=== PATIENT | female | born 1960 | race Caucasian/White ===

== ENCOUNTER 2017-03-15 18:23 | Inpatient (IN) | payer OTHER ==
[~2017-03-15] VITALS: Ht 167.6 cm; Wt 80.8 kg
[2017-03-15 18:25] VITALS: BP 149/92; PULSE 114; RESP 20; O2SAT 97
--- NOTE | 2017-03-15 19:11 | DRSVH ---
PROCEDURE: X-RAY CHEST ONE VIEW, PORTABLE ([id number]) INDICATIONS: CHEST PAIN TECHNIQUE: One view of the chest was acquired. COMPARISON: None. FINDINGS: Surgical changes and devices: None. Lungs and pleura: No pleural effusions or pneumothorax. Lungs are clear. Mediastinum: Mediastinal contours appear normal. Heart size is normal. Bones and chest wall: No suspicious bony lesions. Overlying soft tissues appear unremarkable. IMPRESSION: No acute pulmonary process. Dictated by: Becky Hooks M.D. on 03/15/2017 at 19:09 Approved by: Becky Hooks M.D. on 03/15/2017 at 19:09
[2017-03-15 19:46] VITALS: BP 130/81; PULSE 96; RESP 12; O2SAT 99
[2017-03-15 20:08] LABS: BASOPHILS % (AUTO) 0.5 % (0-3); EOSINOPHILS % (AUTO) 1.9 % (0-5); MONOCYTES % (AUTO) 5.6 % (4-12); Mean Corpuscular Hemoglobin 30.6 pg (27.0-35.0); Mean Corpuscular Volume 89.1 fL (81-100); NEUTROPHILS % (AUTO) 46.4 % (40-74); Platelet Count 367 bil/L (150-400)
--- NOTE | 2017-03-15 20:16 | ED.REPORT ---
HPI-General Illness Date of Service Mar 15, 2017 ED Provider: Lon June MD Pt is a 56 year old female with a history of DM who presents to the ED with concerns for chest pain and lightheadedness. She states that she was at her physical therapy appointment when she was on the exercise bike and her chest began to feel tight, and her arms began to feel "rubbery". 5 out of 10 in severity. Pt reports that this same episode has happened 5 times in the past 9 days, with the first occurrence on the of this month. She describes the pain as a pressure that radiates to her left arm and jaw. This sensation is exacerbated with exertion. She reports that the pressure gradually decreased after she stopped exercising. Pain mild upon arrival while sitting, relieved with nitroglycerin. No other complaints at this time. Nursing Notes Stated Complaint: CHEST PAIN,LIGHTHEADED Chief Complaint: Chest Pain Nursing Notes Reviewed: Yes Allergies: Coded Allergies: Sulfa (Sulfonamide Antibiotics) (Verified Allergy, Mild, 03/15/17) General Time Seen by MD: 19:49 Chief Complaint Chest pain Hx Obtained From: Patient, Spouse Arrived By: Walk-in Sudden in Onset?: Yes Onset Occurred: More than a week ago... Symptom Duration: Intermittent Location: : Chest Quality: Painful, Pressure Severity: Current: Mild Severity: Maximum: Moderate Similar Sx Previous: Yes Past Medical History Past Medical History Former drug use Reports: Diabetes mellitus Past Surgical History Complete hysterectomy Family History Father had a heart attack in his 50s Brother had a heart attack in his 50s Uncle had a heart attack in his 60s Smoking History Former Smoker Social History Alcohol Use: Denies alcohol use Drug Use: In recovery Ambulatory Status Independent Review of Systems Full Review of Systems Constitutional: Denies: Chills, Fever, Weakness - generalized Respiratory: Denies: Non-productive cough, Shortness of breath, Wheezing Cardiovascular: Reports: Chest pain, Denies: Syncope GI: Denies: Abdominal pain, Constipation, Diarrhea, Nausea, Vomiting Female: Denies: Dysuria, Flank pain, Urinary frequency, Urinary urgency Musculoskeletal: Reports: Extremity pain, Denies: Neck pain Skin: Denies Diaphoresis, Denies Swelling Neurologic: Denies: Change LOC, Dizziness, Headache, Syncope Complete sys rev & neg: except as marked. Physical Exam Nursing note and vitals reviewed. Constitutional: Well-developed, well-nourished. Not diaphoretic. Head: Normocephalic and atraumatic. Mouth/Throat: Oropharynx is clear and moist. No oropharyngeal exudate. Eyes: EOM are normal. Pupils are equal, round, and reactive to light. Neck: Supple, no tracheal deviation. Cardiovascular: Normal rate, regular rhythm. Equal and intact distal pulses throughout. Pulmonary/Chest: Effort normal and breath sounds normal. No respiratory distress. Mild chest wall tenderness to palpation, this is different from the pressure-like pain that she was experiencing earlier Abdominal: Soft. No distension. There is no tenderness, rebound, or guarding. Bowel sounds present. Musculoskeletal: Range of motion grossly intact, moving all extremities. No edema or tenderness appreciated. Neurological: AOx3. Grossly nonfocal exam. Strength and sensation intact and equal to bilateral upper and lower extremities. Skin: Warm and dry, no rashes or pallor appreciated. Psychiatric: Appropriate mood and affect. Behavior appears normal. Vital Signs Vital Signs Date Time Temp Pulse Resp B/P Pulse Ox O2 Delivery O2 Flow Rate FiO2 03/15/17 22:08 36.9 93 13 113/70 99 Room Air 03/15/17 19:46 96 12 130/81 99 Room Air 03/15/17 18:25 36.8 114 20 149/92 97 Room Air Initial VS: Reviewed Interpretation & Diagnostics Lab Results Interpretation Result Diagram: 03/15/17195303/15/171953 Test 03/15/17 19:54 White Blood Count 9.1th/mm3 (3.8-10.1) Red Blood Count 4.02mil/mm3 (3.90-5.20) Hemoglobin 12.3g/dL (12.0-15.6) Hematocrit 35.8% (35.0-46.0) Mean Corpuscular Volume 89.1fL (81-100) Mean Corpuscular Hemoglobin 30.6pg (27.0-35.0) Mean Corpuscular Hemoglobin Concent 34.4% (32.0-37.0) Red Cell Distribution Width 11.9% (12.3-15.4) Platelet Count 367bil/L (150-400) Neutrophils (%) (Auto) 46.4% (40-74) Lymphocytes (%) (Auto) 45.3% (14-46) Monocytes (%) (Auto) 5.6% (4-12) Eosinophils (%) (Auto) 1.9% (0-5) Basophils (%) (Auto) 0.5% (0-3) Prothrombin Time 10.4sec (8.1-12.5) Prothromb Time International Ratio 0.97ratio Sodium Level 131mEq/L (134-144) Potassium Level 3.9mEq/L (3.5-5.2) Chloride Level 94mEq/L (97-108) Carbon Dioxide Level 21mmol/L (18-29) Blood Urea Nitrogen 7mg/dL (6-24) Creatinine 0.46mg/dL (0.57-1.00) Estimat Glomerular Filtration Rate 203mL/min (>59) Glucose Level 213mg/dL (60-99) Calcium Level 10.1mg/dL (8.5-10.1) Magnesium Level 1.8mg/dL (1.6-2.6) Total Bilirubin 0.3mg/dL (0.0-1.2) Aspartate Amino Transf (AST/SGOT) 27U/L (0-50) Alanine Aminotransferase (ALT/SGPT) 38U/L (0-32) Alkaline Phosphatase 157U/L (25-150) Troponin T < 0.010ug/L (0.0-0.011) Total Protein 8.5g/dL (6.4-8.4) Albumin 4.4g/dL (3.4-5.0) ECG Interpretation ECG Interpretation: SR - 98 Probable left atrial enlargement Time: 19:23 Interpreted by: ED physician X-Ray Chest Interpretation Chest Xray Interpretation: IMPRESSION: No acute pulmonary process. Dictated by: Becky Hooks M.D. on 03/15/2017 at 19:09 Interpretation / Wet Read by: Interpret - Radiologist Re-Eval/Medical Decision Med Decision/Clinical Course 56-year-old female presenting to the ED for evaluation of exertional, midsternal chest pain radiating up to her left jaw and down her left arm earlier today, since relieved by rest. Patient received nitroglycerin upon arrival, which took her pain away. She is not having any dyspnea, no pain radiating through the back; low risk by well's criteria, no clinical suspicion for aortic dissection at this time. No evidence of pneumothorax on chest x-ray or examination. Patient does have a history of smoking, diabetes, and both of her parents had heart attacks at young ages. I am concerned about her history and clinical presentation. Her initial EKG here with no acute ischemic changes and initial troponin negative. She has a HEART score of 4, suggesting a 12-16% risk of a major adverse cardiac event in the near future. She would benefit from some form of provocative testing for risk stratification and given her risk factors, plan admission for this. Patient agreeable to the plan as stated , no further questions. Source of Hx: Old records Time of Eval: 23:33 Re-Evaluation/Progress Note: Pt is rechecked and informed of her labs and imaging results and the plan to admit her at this time with close cardiac follow up with plans for a stress test. She understands and agrees, all questions are addressed. Counseled Regarding: Diagnosis, Lab results, Need for admission Discharge & Departure Primary Impression: Chest pain Chest pain type: unspecified Qualified Code: R07.9 - Chest pain, unspecified Disposition: ADMITTED TO HOSPITAL Discharge Condition All VS Reviewed: Yes Condition: Stable Referrals: Sandra Farias PA-C (PCP) Nu Attestation Portions of this note were transcribed by Vale Barba. I, Dr. June personally performed the history, physical exam and medical decision-making; I reviewed and confirmed the accuracy of the information in the transcribed note. Signed by: Nu Rodriguez, 03/15/2017 [Time]. copies to: Sandra Farias PA-C, William B MD Mar 15, 2017 20:16 SHAGGY BARBA Mar 15, 2017 21:31
[2017-03-15 20:35] LABS: TROPONIN T < 0.010 ug/L (0.0-0.011)
[2017-03-15 20:36] LABS: Magnesium 1.8 mg/dL (1.6-2.6)
[2017-03-15 20:41] LABS: INR 0.97 ratio
[2017-03-15 22:08] VITALS: BP 113/70; PULSE 93; RESP 13; O2SAT 99
[2017-03-15] MEDS ORDERED: Senna-Docusate 8.6-50 mg Tablet PO PRN (23:45)
[2017-03-15] MEDS ORDERED: Ondansetron 2 mg/mL 2 mL Inj IVPUSH PRN (23:45)
[2017-03-15] MEDS ORDERED: Polyethylene Glycol (PEG) 17 Gm Powder PO PRN (23:45)
[2017-03-15] MEDS ORDERED: Alum-Mag Hydrox-Simeth 30 mL Suspension PO PRN (23:45)
[2017-03-15] MEDS ORDERED: Atropine 1 mg/10 mL (Code) Syringe IVPUSH PRN (23:45)
[2017-03-15] MEDS ORDERED: 0.9% Sodium Chloride 1,000 ML IV ONE (23:50)
[2017-03-16] VITALS (20 sets, daily range): BP systolic 106–159; BP diastolic 69–94; PULSE 80–100; RESP 13–18; O2SAT 93–99
[2017-03-16] MEDS: Sodium Chloride LOK Flush 10 mL Syringe IVFLUSH SCH ×4 (00:51→21:40)
[2017-03-16] MEDS ORDERED: Glucose 40% Oral Gel 15 Gm Tube PO PRN (01:00)
--- NOTE | 2017-03-16 02:12 | PCM.HPMED ---
Subjective Date of Service Mar 15, 2017 Primary Provider: Admitting Physician: Karl Ash MD Primary Care Physician: Sandra Farias PA-C Attending Physician: Karl Ash MD Chief Complaint: chest pain History of Present Illness: Mariel is a 56 yo F with history of uncontrolled T2DM not insulin dependent who presented to the ED for concerns of intermittent chest pain over the last 2 weeks. She reports that she was on the exercise bike today at PT when she noted some chest tightness about 5 minutes into her exercise. She states the chest pressure was substernal, radiated laterally on her chest, and also into her left jaw and left arm. She reports her arms felt "rubbery" when it happened. She also had some associated lightheadedness, palpitations, and diaphoresis. She states this lasted about 5 minutes and resolved after rest. She has had about 5 episodes in the past 2 weeks with similar presentation but less severe. The episodes tend to be associated with exertion, such as mowing the lawn, except for one episode that occurred at night and woke her up from sleep. She does have an extensive history of heart disease in her family, with her father having an AL in his later 40s. At baseline, she has not noticed any JOYNER, LE edema, or orthopnea. 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 She denies any recent illnesses, but did have Januvia added to her diabetic regimen. Despite this, she reports her fasting sugars are still in the low 200s. She reports her last A1c was about 9.0. In the ED, she was asymptomatic with normal, stable vital signs EKG showed sinus rhythm with no acute ST changes CBC was unremarkable, CMP showed mild hyponatremia, negative troponin. Chest x- ray was benign Due to patient's multiple comorbidities, she is admitted for further evaluation of her chest pain Review of Systems: Comprehensive review of systems was conducted with the patient and found to be negative except as noted above in HPI. Allergies Coded Allergies: Sulfa (Sulfonamide Antibiotics) (Verified Allergy, Mild, 03/15/17) Home Medications From [facility] 12/08/2016 atorvastatin 40 mg tablet take 1 tablet by oral route every day 10/27/2016 estradiol 0.5 mg tablet TAKE ONE TABLET BY MOUTH DAILY 03/09/2017 glyburide 5 mg tablet take 2 Tablets by oral route every breakfast 01/11/2017 Januvia 100 mg tablet take 1 tablet by oral route every day 01/11/2017 lisinopril 5 mg tablet take 1 tablet by oral route every day 02/15/2017 meloxicam 7.5 mg tablet take 1 tablet by oral route every day as needed for inflammatory exacerbation 06/16/2016 metformin 1,000 mg tablet TAKE ONE TABLET BY MOUTH TWICE A DAY WITH MORNING AND EVENING MEALS multivitamin tablet take 1 tablet by oral route every day with food 01/11/2017 nortriptyline 10 mg capsule take 1 Capsule by oral route every bedtime 06/16/2016 nystatin 100,000 unit/gram topical cream apply by topical route 2 times every day to the affected area(s) OMEGA-3 Take 1 capsule by oral route once daily 11/26/2014 [employer] Lancets 25 gauge use to test BS twice daily 12/13/2014 [employer] Ultra System Kit use to test blood sugar twice daily 01/11/2017 [employer] Ultra Test strips Use 1 Strip by External route 2 times every day to check blood sugars Probiotic Take 1 tab PO daily Vitamin B-12 1,000 mcg/mL oral drops instill 6-8 gtts by oral route once daily Vitamin D3 5,000 unit tablet Take 1 tablet by oral route once daily PMH Type II diabetes mellitus not on insulin, uncontrolled Hyperlipidemia Distant history of IV drug use and alcohol abuse, clean and sober since early Surgical History Partial hysterectomy with left oophorectomy Family History Extensive family history of cardiac disease and diabetes Social History Hx Alcohol Use: Yes (sober since early 1999) Hx Substance Use: Yes (sober since ) Hx Tobacco Use: Yes (approximate 78-java-sjih history, quit in 2029) Smoking Status: Former Smoker Living Arrangement: with Family Exam Vital Signs Vital Sign - Last Date Time Temp Pulse Resp B/P Pulse Ox O2 Delivery O2 Flow Rate FiO2 03/15/17 22:08 36.9 93 13 113/70 99 Room Air Exam General: Overweight female who appears in no acute distress HEENT: Normocephalic, atraumatic. External ears without defect. PERRLA, EOMI. Anicteric sclerae, moist conjunctivae, and no lid lag. Oropharynx mildly dry but pink Neck: Supple with full range of motion. No jugular venous distension. No bruits. Cardiovascular: Regular rate and rhythm with soft systolic murmur, anterior chest wall mildly tender to palpation. Pulmonary: Clear to auscultation bilaterally with no crackles, wheezes, or rhonchi. Normal respiratory effort with no use of accessory muscles. Abdomen: Bowel tones present. Soft, nontender, nondistended. No hepatosplenomegaly or masses appreciated. Extremities: No clubbing, cyanosis, edema, or lymphadenopathy appreciated. Skin: Normal temperature, turgor, and texture; no rash, ulcers, or subcutaneous nodules appreciated. Neurological: Cranial nerves grossly intact. Normal muscle strength, tone, and bulk. Reflexes, coordination, and sensory function within normal limits. . Psychiatric: Normal mood and affect. Alert and oriented to person, place, and time. Cooperative and pleasant Lab and Diagnostics Result Diagram: 03/15/17195303/15/171953 X-Rays, CTs and MRIs ECG Interpretation: SR - 98 Probable left atrial enlargement Time: 19:23 Interpreted by: ED physician X-Ray Chest Interpretation Chest Xray Interpretation: IMPRESSION: No acute pulmonary process. Dictated by: Becky Hooks M.D. on 03/15/2017 at 19:09 Interpretation / Wet Read by: Interpret - Radiologist Assessment & Plan 56 yo F with history of uncontrolled T2DM not insulin dependent who presented to the ED for concerns for 5 episodes of intermittent substernal chest pain over the last 2 weeks. Patient has an extensive family history of cardiac disease and multiple risk factors. Chest pain, POA Her symptoms appear to be exertion related. Likely unstable angina, DDX NSTEMI , anxiety/stress, MSK related EKG did not show any acute abnormalities. Aspirin 325 given in ED, will continue baby aspirin daily Placed on telemetry for CV monitoring Echocardiogram in the a.m. Exercise stress test in the a.m. with Bekah backup due to patient's acute Achilles tendinitis We will trend troponins, which have been negative 1 Nothing by mouth after midnight Dehydration, POA Patient reports increased exertion in the past few days with insufficient fluid intake. Likely the cause of her hyponatremia and hypochloremia Plan to replenish with IV normal saline and continue to monitor Type II diabetes mellitus, uncontrolled, POA Has been fairly uncontrolled. Will plan to hold her Glyburide and Metformin Start high-dose lispro correctional scale Consider diabetic education Hyperlipidemia, POA Patient's lipids have been fairly elevated in the past. Will check lipid profile in the AM and continue her statin Tylenol as needed for fever/pain Zofran as needed for nausea Bowel regimen as needed for constipation CODE STATUS: Full resuscitation Patient is admitted under observation status with expected length of stay less than 2 midnights due to severity of presenting symptoms, risk of adverse event, and complexity of treatment plan. Pain Evaluation: Adequate Pain Control VTE Prophylaxis: Sub-Q Enoxaparin Resuscitation Status: CPR: Attempt Resuscitation Attending Statement The patient was seen and examined together with Dr. Robbins on 03/15 and I agree with the history, exam and plan as outlined in the note above. Cristian Robbins DO Mar 15, 2017 23:57 Karl Ash MD Mar 16, 2017 02:34
[2017-03-16] MEDS ORDERED: ESTR0.5T (03:36)
[2017-03-16] MEDS ORDERED: OMEG1CAP25 PO (03:36)
[2017-03-16] MEDS ORDERED: MULT-666 PO (03:36)
[2017-03-16] MEDS ORDERED: GLBR5T PO (03:36)
[2017-03-16] MEDS ORDERED: LACT1CAP67 PO (03:36)
[2017-03-16] MEDS ORDERED: CHOL500011 PO (03:36)
[2017-03-16] MEDS ORDERED: METF500T4 PO (03:36)
[2017-03-16] MEDS ORDERED: NORT10CA PO (03:36)
[2017-03-16] MEDS ORDERED: LISI-571 PO (03:36)
[2017-03-16] MEDS ORDERED: CYAN100085 PO (03:36)
[2017-03-16] MEDS ORDERED: MELO-259 PO (03:36)
[2017-03-16] MEDS ORDERED: SITA100T12 PO (03:36)
[2017-03-16] MEDS ORDERED: NYST1POW2 PO (03:36)
[2017-03-16 06:40] LABS: BASOPHILS % (AUTO) 0.4 % (0-3); EOSINOPHILS % (AUTO) 2.3 % (0-5); MONOCYTES % (AUTO) 5.7 % (4-12); Mean Corpuscular Hemoglobin 30.8 pg (27.0-35.0); Mean Corpuscular Volume 87.5 fL (81-100); NEUTROPHILS % (AUTO) 47.6 % (40-74); Platelet Count 329 bil/L (150-400)
[2017-03-16 06:57] LABS: TROPONIN T 0.01 ug/L (0.0-0.011)
[2017-03-16] MEDS: Insulin LISPRO 300 Unit/3 mL Inj SUBQ SCH ×4 (11:06→20:26)
[2017-03-16] MEDS ORDERED: Heparin 1,000 Units/500 mL NS Premix IV ONE (12:55)
[2017-03-16] MEDS ORDERED: Heparin 10,000 Unit/1,000 mL NS Premix IV ONE (12:55)
[2017-03-16] MEDS ORDERED: Nitroglycerin 50,000 mcg/250 mL D5W Premix IV ONE (13:00)
[2017-03-16] MEDS ORDERED: Heparin 1,000 Unit/mL 10 mL Inj ONE (13:00)
--- NOTE | 2017-03-16 13:16 | PCM.CHPCAR ---
Consult Subjective Date of service Mar 16, 2017 Date of admit Mar 15, 2017 at 23:14 Provider Requesting Consult Primary Care Physician Primary Care Physician: Sandra Farias PA-C Chief Complaint Chest pain History of Present Illness 56-year-old woman history of diabetes and hyperlipidemia admitted with exertional chest pain. Patient is seen with her next to her bedside. Patient states that she started having exertional chest discomfort on March 06, 2017. The chest discomfort would resolve within a few minutes of rest. One episode did occur when she woke up with sweats but it also resolved with relaxation. She has noticed that this chest discomfort occurs with physical exertion or with emotional stress due to work related issues. There is also associated shortness of breath but no palpitations, lightheadedness, or syncope. Review of Systems Review of Systems Per history of present illness and otherwise unremarkable PMH Past Medical History # Diabetes: Poorly controlled # Hyperlipidemia # Remote history of alcohol abuse and IV drug use # Former smoker Bedside Blood Glucose: 245 Scheduled Cholecalciferol (Vitamin D3) (Vitamin D3) 5,000 Unit Tablet 5,000 UNIT PO DAILY (Reported) Cyanocobalamin (Vitamin B-12) (Vitamin B-12) 1,000 Mcg/1 Ml Drops 1,000 MCG PO DAILY (Reported) Estradiol (Estradiol) 0.5 Mg Tablet DAILY (Reported) Glyburide (Glyburide) 5 Mg Tab 10 MG PO BIDAC (Reported) Lactobacillus Combination No.4 (Probiotic) 1 Each Capsule 1 EACH PO DAILY ( Reported) Lisinopril (Lisinopril) 5 Mg Tablet 5 MG PO DAILY (Reported) Meloxicam (Meloxicam) 7.5 Mg Tablet 7.5 MG PO DAILY (Reported) Metformin (Metformin) 500 Mg Tablet 1,000 MG PO BIDAC (Reported) Multivitamin (Once Daily) 1 Each Tablet 1 EACH PO DAILY (Reported) Nortriptyline (Nortriptyline) 10 Mg Capsule 10 MG PO HS (Reported) Starbuck-3 Fatty Acids/Fish Oil (Starbuck 3 Fish Oil Softgel) 1 Each Capsule.dr 1 EACH PO DAILY (Reported) Sitagliptin Phos (Januvia) 100 Mg Tablet 100 MG PO DAILY (Reported) Miscellaneous Medications Nystatin (Nystatin) 1 Each Powder.ea. 1 EACH PO (Reported) Current Inpatient Medications Current Medications Nitroglycerin 0.4 mg Q5MIN PRN SL Last administered on 03/15/17 20:09; Admin Dose 0.4 MG; Start 03/15/17 at 20:00; Stop 03/16/17 at 08:53; Status DC Enoxaparin Sodium 40 mg DAILY SUBQ Last administered on 03/16/17 10:58; Admin Dose 40 MG; Start 03/16/17 at 08:30 Sodium Chloride 10 ml JAREN IVFLUSH Last administered on 03/16/17 10:58; Admin Dose 10 ML; Start 03/16/17 at 00:30 Aspirin 81 mg DAILY PO; Start 03/16/17 at 08:30 Al Hydrox/Mg Hydrox/Simethicone 30 ml Q6 PRN PO; Start 03/15/17 at 23:45 Ondansetron HCl 4-8 mg prn nausea Q4 PRN IVPUSH; Start 03/15/17 at 23:45 Senna 1 tablet BID PRN PO; Start 03/15/17 at 23:45 Polyethylene Glycol 17 gm DAILY PRN PO; Start 03/15/17 at 23:45 Acetaminophen 325 mg Q6 PRN PO; Start 03/15/17 at 23:45 Nitroglycerin 0.4 mg Q5MIN PRN SL; Start 03/15/17 at 23:45 Morphine Sulfate 1-5 mg prn pain not relie... Q5M PRN IVPUSH; Start 03/15/17 at 23:45 Atropine Sulfate 0.5 mg Q5MIN PRN IVPUSH; Start 03/15/17 at 23:45 Lorazepam 0.5 mg Q4 PRN IVPUSH; Start 03/15/17 at 23:45 Temazepam 15 mg HS PRN PO; Start 03/15/17 at 23:45 Insulin Human Lispro Nutritional Dose to be given pr... [facility] SUBQ Last administered on 03/16/17 11:06; Admin Dose 4 UNIT; Start 03/16/17 at 08:00 Allergies: Coded Allergies: Sulfa (Sulfonamide Antibiotics) (Verified Allergy, Mild, 03/15/17) Family History Family History Brother of GA at age of 50. Father had GA in his late 40s. Social History Hx Alcohol Use: Yes (sober since early 1999)Hx Substance Use: Yes (sober since )Hx Tobacco Use: Yes (approximate 18-mufz-vtot history, quit in 2029 ) Smoking Status: Former Smoker (quit 2002) Living Arrangement: with Family Exam Vital Signs Vital Sign - Last Date Time Temp Pulse Resp B/P Pulse Ox O2 Delivery O2 Flow Rate FiO2 03/16/17 11:09 99 03/16/17 09:50 36.6 18 122/74 99 Room Air Intake and Output 03/15/17 03/15/17 03/16/17 Cumulative From/Thru 15:00 23:00 07:00 03/15/17 18:25 - 03/16/17 06:13 Intake Total 683 ml 683 ml Output Total 1300 ml 1300 ml Balance -617 ml -617 ml Intake Oral 0 ml 0 ml IV Total 683 ml 683 ml Output Urine Total 1300 ml 1300 ml Objective General appearance: No apparent distress, well-nourished, pleasant, cooperative HEET: Normocephalic atraumatic, no scleral icterus, tongue midline, mucous membranes moist Neck: supple Cardiovascular: RRR, normal S1 and normal S2, no murmurs/ rubs/gallops, PMI nondisplaced, no JVD, no peripheral edema Respiratory: Good aeration, CTAB Abdomen: Soft, nontender, nondistended, + bowel sounds Neuro: Alert, tongue midline, no gross motor deficits Psych: appropriate affect Skin: no rashes on face, neck, and lower extremities Lab and Diagnostics Labs Serial troponins negative Result Diagram: 03/16/17 0610 03/16/17 0610 X-Rays, CTs and MRIs Nuclear treadmill stress test today: Abnormal per primary team. 12-lead ECG ECG on admission shows sinus rhythm with no ST T changes. Assessment & Plan Assessment 56-year-old woman history of diabetes and hyperlipidemia admitted with exertional chest pain: # Unstable angina: Patient's self-described story of exertional chest pain suggesting unstable angina. She has multiple risk factors for CAD, including family history, uncontrolled diabetes, hyperlipidemia, and former smoking/ illicit drug use. Her nuclear stress test was also abnormal but report is still pending. I spent significant time educating the patient and her about patient's condition and recommended coronary angiography with possible PCI. Recommendations as below: - Continue aspirin 81 mg daily - Start atorvastatin 40 mg daily at bedtime - Proceed with coronary angiography with possible PCI. - Patient congratulated on successful smoking cessation and abstinence from illicit drugs # Diabetes that is poorly controlled: We will defer management to primary team on further optimization of diabetes. # Hyperlipidemia: Statin as above Pain Evaluation: Adequate Pain Control VTE Prophylaxis: Sub-Q Enoxaparin VTE Mechanical Devices: Venous Foot Pump Resuscitation Status: CPR: Attempt Resuscitation Kinza Cole MD Mar 16, 2017 13:16 Kinza Cole MD Mar 16, 2017 13:16
[2017-03-16] MEDS ORDERED: fentaNYL-PF 50 mCg/mL 2 mL Inj ONE (13:30)
--- NOTE | 2017-03-16 13:34 | DRSVH ---
PROCEDURE: NUCLEAR CARDIOLOGY MYOCARDIAL PERFUSION STUDY PROCEDURE PERFORMED: Exercise treadmill stress and rest myocardial perfusion imaging study with alex garner to assess ejection fraction and regional wall motion. RADIOPHARMACEUTICAL: Stress: 25.2 mCi of technetium-99 tetrofosmin. Rest: 8.78 mCi of technetium-9 9 tetrofosmin. INDICATIONS: The patient is a 56-year-old diabetic female with intermittent exertional chest discomf ort. EXERCISE TREADMILL TESTING: The patient was able to exercise for 4 minutes and 40 seconds on a stand suraj Gonzalo protocol suggesting moderately reduced exercise capacity with an IWONA of +32%. She had a no rmal heart rate and blood pressure response achieving a maximum heart rate of 159 BPM (96% of her pre dicted maximum) and a maximum blood pressure of 190/80. Her resting ECG appears normal and she devel oped her usual mid-chest discomfort radiating to the left arm at the end of stage I and was progressi ve with associated with 1.5 to 2.5 mm of down-sloping ST depression in the inferolateral leads that r emained persistent into recovery, consistent with an ischemic response. Her chest pain spontaneously abated after 4 minutes of recovery. There were occasional PVCs but no other ectopy. FINDINGS: 1. Raw Data: There is fairly good myocardial tracer uptake. There are minimal breast shadows. Th ere is no obvious post-stress dilatation or increased lung uptake. 2. Quantitative Gated SPECT: Post-stress ejection fraction is estimated at 75% without any focal wa ll motion abnormality and specifically the distal anterior wall appears to have normal contractility. Resting ejection fraction is 76%, again without any regional wall motion abnormalities identified. End diastolic volume is normal at 56 mL. 3. Myocardial Perfusion Imaging: Post-stress supine images show a mild perfusion defect at the prox imal portion of the inferior wall that remains persistent on the prone images, concerning for a possi ble true perfusion defect. In addition, there is a mild perfusion defect in the distal portion of th e anterior wall and septum extending to the apex, which improves but does not resolve on the prone im ages. The resting images show no significant change in the proximal inferior perfusion defect but th e distal anterior and apical defect essentially completely resolves, concerning for ischemia. IMPRESSION: 1. Abnormal myocardial perfusion study. 2. Fairly small but reversible perfusion defect in the distal anterior wall and anterior septum, ext ending to the apex that persists on prone imaging. While this could reflect differential breast posi tioning, given the ischemic response on her treadmill with provocable angina, this likely represents ischemia in the mid to distal LAD distribution. In addition, there is a fixed defect in the proximal portion of the inferior wall, which could reflect diaphragmatic attenuation although persists on the prone images suggesting a possible previous nontransmural infarction but there are no regional wall motion abnormalities seen. 3. There is preserved left ventricular systolic function without any regional wall motion abnormalit ies. 4. Moderately reduced exercise capacity with provocable angina and ECG changes consistent with an is chemic response. Dictated by: Zaid Ruggiero M.D. on 03/16/2017 at 11:36 Transcribed by: ROSA on 03/16/2017 at 16:33 cc: DARIA Cotto; Jesse Mejía MD Approved by: Zaid Ruggiero M.D. on 03/17/2017 at 13:27
[2017-03-16] MEDS ORDERED: Atropine 1 mg/10 mL (Code) Syringe ONE (13:46)
--- NOTE | 2017-03-16 14:46 | PCM.CVCATH ---
Cardiac Cath Report Date of Service Mar 16, 2017 Primary Indication Unstable angina Procedure coronary angiography, left heart cath Vascular Access Right radial artery using 5 Fr slender sheath, closure with TR band. Diagnostic Catheters Left main: [place] 4.0, 5 Fr (after failure to engage with tiger 4.5 5Fr and JL3.5 5Fr) RCA: [place] 4.5, 5 Fr Procedure Details Coronary angiography details: The patient was brought to the cardiac catheterization lab in the fasting state. Patient was laid supine on the cardiac catheterization table and the right forearm was prepped and draped in the usual sterile fashion. One percent Xylocaine was infiltrated over the right radial artery. Vascular access was then achieved under ultrasound guidance. Guide wire was used to advance the catheter through the sheath and up into aortic sinuses. After coronary angiography was completed, guide wire was advanced through the catheter ahead of the tip of the catheter and the guide wire along with the catheter were pulled together out of the sheath. Medications/Fluoro Time Medications administered: 1.Fentanyl: 100 mcg IV 2. Midazolam: 2 mg IV 3. Heparin: 6000 units IV 4. Nitroglycerin: 400 mcg IA Fluoroscopy Time: 13.4 minutes, 1107 mGy Contrast (Isovue): 80 mls Blood loss: 10 mls Findings 1) Coronary angiography: Right dominance a. Left main is short and normal caliber vessel with no significant angiographic disease. b. LAD is normal caliber calcific vessel with 80-85% stenosis in the mid vessel. The first diagonal artery is a medium caliber vessel with 70-80% stenosis proximally. c. LCx is normal caliber calcific vessel with mild luminal regularities. The first obtuse marginal artery has 40-50% stenosis at the ostium. d. RCA is normal caliber with 60% stenosis proximally and 80-85% tubular stenosis in the distal RCA. The proximal posterolateral branch has 70-75% tubular stenosis. 2) Left Heart catheterization: a. LVEDP is normal at 9 mmHg. b. No significant transaortic gradient on catheter pull-back. Complications There were no periprocedural complications identified. Summary Two large vessel obstructive coronary artery disease in the LAD and RCA. The diagonal artery, which is medium caliber, also has obstructive disease. Recommendations Refer to CT surgery for CABG. If patient doesn't want to undergo CABG, stenting can be considered. copies to: Sandra Farias PA-C, Bhrigu R MD Mar 16, 2017 14:46
[2017-03-16] MEDS ORDERED: Insulin Human REGular-Omnicell 100 Unit/mL ONE (16:29)
--- NOTE | 2017-03-16 17:22 | PCM.PNMED ---
Subjective Date of Service Mar 16, 2017 Subjective Denies any new issues/complaints. No further CP since admit Exam Vital Signs Vital Sign - Last Date Time Temp Pulse Resp B/P Pulse Ox O2 Delivery O2 Flow Rate FiO2 03/16/17 17:00 86 18 137/77 97 Nasal Cannula 2.00 03/16/17 12:49 36.8 Intake and Output 03/15/17 03/15/17 03/16/17 Cumulative From/Thru 15:00 23:00 07:00 03/15/17 18:25 - 03/16/17 06:13 Intake Total 683 ml 683 ml Output Total 1300 ml 1300 ml Balance -617 ml -617 ml Intake Oral 0 ml 0 ml IV Total 683 ml 683 ml Output Urine Total 1300 ml 1300 ml General: Alert, Cooperative, No Acute Distress Head: Normal Eyes: Scleral Anicteric Nose: Mucous Membr Moist/[place] Mouth: Mucous Membr Moist/[place] Neck: Supple Chest & Lungs: Chest Wall Normal, Clear to auscultation & percussion Cardiovascular: Regular Rate/Rhythm Pulses: NL carotid, radial, femoral, DP, PT Abdomen: Non-tender, Non-distended, Normoactive bowel tones, Soft Extremities: No cyanosis/clubbing/edma bilat Neurological: Grossly Neurologically Intact, Normal Speech Additional Information: Psych: Calm, appropriate IVs and Medications Medications Reviewed: Medications were reviewed in detail Lab and Diagnostics Result Diagram: 03/16/17 0610 03/16/17 0610 X-Rays, CTs and MRIs ECG Interpretation: SR - 98 Probable left atrial enlargement Time: 19:23 Interpreted by: ED physician X-Ray Chest Interpretation Chest Xray Interpretation: IMPRESSION: No acute pulmonary process. Dictated by: Becky Hooks M.D. on 03/15/2017 at 19:09 Interpretation / Wet Read by: Interpret - Radiologist Assessment & Plan 56 yo F with history of uncontrolled T2DM not insulin dependent who presented to the ED for concerns for 5 episodes of intermittent substernal chest pain over the last 2 weeks. Patient has an extensive family history of cardiac disease and multiple risk factors. # Chest pain, POA - Symptoms very typical - Acute CO ruled out with negative Trop - Stress test reported as abnormal today - Cardiology consulted. Plan for cath today - Followup pending Echo - Continue Aspirin daily - Further cardiac meds per cardiology recs # Acute Dehydration, POA - Patient reports increased exertion in the past few days with insufficient fluid intake. Likely the cause of her hyponatremia and hypochloremia - Resolved with IVF. # Type II diabetes mellitus, uncontrolled, POA - Hold her Glyburide and Metformin - Continue high-dose lispro correctional scale - Diabetic education # Hyperlipidemia, POA - Continue her statin Dispo: 1-2 days pending cardiology recs VTE Prophylaxis: Sub-Q Enoxaparin VTE Mechanical Devices: Venous Foot Pump Resuscitation Status: CPR: Attempt Resuscitation Jesse Mejía Mar 16, 2017 17:22
--- NOTE | 2017-03-16 20:17 | DRSVH ---
PROCEDURE: US BILATERAL DUPLEX DOPPLER IMAGING OF THE CAROTIDS ([id number]) INDICATIONS: CAD, workup for possible CABG TECHNIQUE: Color and pulse Doppler interrogation was performed of both carotid systems, with image documentation and velocity measurements. COMPARISON: None. FINDINGS: Stenosis calculations are based on SRU (Society of Radiologists in Ultrasound) criteria. Right side: Brachial blood pressure: Not obtained Common carotid artery peak systolic velocity: 87 cm/sec. Internal carotid artery peak systolic velocity: 99 cm/sec. Internal carotid artery end diastolic velocity: 39 cm/sec. External carotid artery peak systolic velocity: 98 cm/sec. ICA/CCA peak systolic ratio: 1.13. Joiner scale imaging description: Mild calcific plaque at the bifurcation. Percent internal carotid artery stenosis: Less than 50%. Vertebral artery: Flow direction is antegrade. Left side: Brachial blood pressure: 159/94 mm Hg. Common carotid artery peak systolic velocity: 93 cm/sec. Internal carotid artery peak systolic velocity: 112 cm/sec. Internal carotid artery end diastolic velocity: 44 cm/sec. External carotid artery peak systolic velocity: 90 cm/sec. ICA/CCA peak systolic ratio: 1.21. Joiner scale imaging description: Mild soft plaque at the bifurcation Percent internal carotid artery stenosis: Less than 50%. Vertebral artery: Flow direction is antegrade. IMPRESSION: 1. Less than 50% bilateral internal carotid artery stenosis. 2. Antegrade vertebral artery flow bilaterally. Dictated by: Ervin Dalton M.D. on 03/16/2017 at 20:14 Approved by: Ervin Dalton M.D. on 03/16/2017 at 20:16
[2017-03-17 00:32] VITALS: BP 131/82; PULSE 84; RESP 18; O2SAT 99
[2017-03-17 01:15] VITALS: BP 144/91; PULSE 91; RESP 18; O2SAT 98
[2017-03-17 05:51] VITALS: BP 126/79; PULSE 104; RESP 18; O2SAT 98
[2017-03-17] MEDS: Insulin LISPRO 300 Unit/3 mL Inj SUBQ SCH ×2 (08:41→11:59)
[2017-03-17] MEDS: Sodium Chloride LOK Flush 10 mL Syringe IVFLUSH SCH (08:42)
--- NOTE | 2017-03-17 10:26 | DRSVH ---
[facility] [address] [place] [address] Echocardiogram Report Name: YECENIA RIVERO JStudy Date : 03/17/2017 Height: 66 in Hospital Exam Location: [facility] Weight: 180 lb Gender: Other BSA: 1.9 m2 : 1960 Age: 56 yrs BP: 126/79 mmHg Reason For Study: Chest Pain Ordering Physician: Performed By: Jenn Caba Referring Physician: RODRIGUEZ SUH Interpretation Summary 1) Normal left ventricular thickness, size, wall motion, and systolic function (EF 65-70%). 2) Proximal septal thickening noted with mild LVOT gradient with valsalva (peak gradient 36mmHg). This LVOT gradient could be due to hyperdynamic state. 3) Normal right ventricular size and function. 4) No significant valvular abnormalities. 5) No prior Echo available for comparison. Procedure: A two-dimensional transthoracic echocardiogram with color flow and Doppler was performed. The study quality was technically adequate. There is no prior echocardiogram noted for this patient. The heart rate ranged between 94-103 bpm during the study. Left Ventricle: The left ventricle is normal in size. Left ventricular wall thickness is normal. Proximal septal thickening is noted. The left ventricular outflow velocity with valsalva is increased. The ejection fraction is estimated to be 65-70%. Diastolic function could not be accurately assessed due to tachycardia. Right Ventricle: The right ventricle is normal size. Right ventricular systolic function is mildly reduced. Atria: Both atria are normal in size. Mitral Valve: The mitral valve leaflets appear mildly thickened, but open well. There is mild mitral annular calcification. There is trace mitral regurgitation. Aortic Valve: The aortic valve is trileaflet. The aortic valve opens well. There is mild aortic valve sclerosis. There is no aortic valve stenosis. No aortic regurgitation is present. Tricuspid Valve: The tricuspid valve is normal in structure and function. There is trace tricuspid regurgitation. Pulmonary artery pressures cannot be estimated because of the lack of a measurable TR jet velocity. Pulmonic Valve: The pulmonic valve is normal in structure and function. There is trace pulmonic regurgitation. Great Vessels: The aortic root is normal size. The ascending aorta is normal in size. The IVC is of normal diameter and collapses greater than 50% with a sniff. This suggests a low right atrial pressure of 3 mm Hg. Pericardium/ Pleura There is no pericardial effusion. There is an anterior echo-free space consistent with a fat pad. There is no pleural effusion. MMode/2D Measurements & Calculations LVIDd: 3.3 cm LA dimension: 3.3 cm RA long axis LVOT diam: 1.9 cm LVIDs: 2.3 cm IVC diam: 1.4 cm AoV Opening FS: 31.3 % RA area EPSS: 0.15 cm Ao root diam IVSd: 1.3 cm : 9.4 cm LVPWd: 1.1 cm RA vol asc Aorta Diam : 18.8 ml RA Ao Arch Diam (Prox : 9.9 mm2 Trans): 2.9 cm LV raymond. diameter/BSA LV sys. diameter/BSA (cm/m^2): 1.7 (cm/m^2): 1.2 Doppler Measurements & Calculations Ao V2 max MV E max raman MV E/A: 0.68 PA V2 max : 176.8 cm/sec : 74.3 cm/sec Med Peak E' Raman : 103.6 cm/sec Ao max P.5 mmHg MV A max raman PA mean PG Ao mean P.5 mmHg : 108.7 cm/sec E/E' med: 13.2 : 2.4 mmHg LVOT Max Raman Lat Peak E' Raman : 118.5 cm/sec E/E' lat: 7.3 GURPREET(I,D): 2.4 cm E/e' average sev ratio: 0.86 MV dec time: 0.11 sec Ao V2 mean LV V1 max PG PA V2 mean : 123.0 cm/sec : 73.5 cm/sec Ao V2 VTI: 28.1 cm LV V1 VTI: 24.1 cm GURPREET(V,D): 1.9 cm2 GURPREET indexed to BSA (cm^2/m^2): 1.3 Reading Physician:10:25 AM
[2017-03-17 10:38] VITALS: PULSE 133
[2017-03-17 10:42] VITALS: BP 117/77; PULSE 110; RESP 16; O2SAT 97
[2017-03-17] MEDS ORDERED: Insulin GLARgine 100 Unit/mL Syringe SUBQ SCH (10:50)
[2017-03-17] MEDS ORDERED: 0.9% Sodium Chloride 1,000 ML IV ONE (11:45)
[2017-03-17] MEDS ORDERED: 0.9% Sodium Chloride 0 ML ONE (12:02)
--- NOTE | 2017-03-17 12:13 | PCM.PNCARD ---
Subjective Date of service Mar 17, 2017 Chief Complaint Chest pain History of Present Illness 56-year-old woman history of diabetes and hyperlipidemia admitted with exertional chest pain. Patient is seen with her next to her bedside. Patient states that she started having exertional chest discomfort on March 06, 2017. The chest discomfort would resolve within a few minutes of rest. One episode did occur when she woke up with sweats but it also resolved with relaxation. She has noticed that this chest discomfort occurs with physical exertion or with emotional stress due to work related issues. There is also associated shortness of breath but no palpitations, lightheadedness, or syncope. Subjective: Patient underwent coronary angiography yesterday that showed multivessel coronary artery disease that would be best served by cardiac bypass surgery. She also had carotid ultrasound done yesterday as part of heart surgery evaluation. Overnight, patient had one episode of chest pain that resolved with nitroglycerin. PROBLEM LIST: # Diabetes: Poorly controlled # Hyperlipidemia # Remote history of alcohol abuse and IV drug use # Former smoker Exam Vital Signs Vital Sign - Last Date Time Temp Pulse Resp B/P Pulse Ox O2 Delivery O2 Flow Rate FiO2 03/17/17 10:42 37.4 110 16 117/77 97 Room Air 03/16/17 17:54 2.00 Intake and Output 03/16/17 03/16/17 03/17/17 Cumulative From/Thru 15:00 23:00 07:00 03/15/17 18:25 - 03/17/17 06:23 Intake Total 246 ml 473 ml 473 ml 1875 ml Output Total 800 ml 1400 ml 3500 ml Balance 246 ml -327 ml -927 ml -1625 ml Intake Oral 473 ml 473 ml 946 ml IV Total 246 ml 929 ml Output Urine Total 800 ml 1400 ml 3500 ml General appearance: No apparent distress, well-nourished, pleasant, cooperative HEET: Normocephalic atraumatic, no scleral icterus, tongue midline, mucous membranes moist Neck: supple Cardiovascular: RRR, normal S1 and normal S2, no murmurs/ rubs/gallops, PMI nondisplaced, no JVD, no peripheral edema Respiratory: Good aeration, CTAB Abdomen: Soft, nontender, nondistended, + bowel sounds Neuro: Alert, tongue midline, no gross motor deficits Lab and Diagnostics Result Diagram: 03/16/1710 03/16/17609 X-Rays, CTs and MRIs Echo 03/17/2017: 1) Normal left ventricular thickness, size, wall motion, and systolic function (EF 65-70%). 2) Proximal septal thickening noted with mild LVOT gradient with valsalva (peak gradient 36mmHg). This LVOT gradient could be due to hyperdynamic state. 3) Normal right ventricular size and function. 4) No significant valvular abnormalities. 5) No prior Echo available for comparison. Carotid US 03/16/2017: 1. Less than 50% bilateral internal carotid artery stenosis. 2. Antegrade vertebral artery flow bilaterally. Cath 03/16/2017: 1) Coronary angiography: Right dominance a. Left main is short and normal caliber vessel with no significant angiographic disease. b. LAD is normal caliber calcific vessel with 80-85% stenosis in the mid vessel. The first diagonal artery is a medium caliber vessel with 70-80% stenosis proximally. c. LCx is normal caliber calcific vessel with mild luminal regularities. The first obtuse marginal artery has 40-50% stenosis at the ostium. d. RCA is normal caliber with 60% stenosis proximally and 80-85% tubular stenosis in the distal RCA. The proximal posterolateral branch has 70-75% tubular stenosis. 2) Left Heart catheterization: a. LVEDP is normal at 9 mmHg. b. No significant transaortic gradient on catheter pull-back. Assessment & Plan Assessment 56-year-old woman history of diabetes and hyperlipidemia admitted with exertional chest pain: # Unstable angina: Coronary angiography yesterday showed obstructive disease in the LAD, diagonal artery, RCA and the posterolateral branch of the RCA. This was not surprising due to her multiple risk factors for CAD, including family history, uncontrolled diabetes, hyperlipidemia, and former smoking/illicit drug use. I spent significant time educating the patient and her about patient's condition and recommended cardiac bypass surgery. Patient and thought about it overnight and have arranged their finances and work responsibilities to undergo cardiac bypass surgery. Thankfully, her LV function is normal with no wall motion abnormalities and no valvular disease. She does have mild LVOT gradient with Valsalva but I think this is related to dehydration and hyperdynamic state. Recommendations as below: - Continue aspirin 81 mg daily - Continue atorvastatin 40 mg daily at bedtime - Will speak with [facility] cardiac surgery on transfer to the hospital. - Patient congratulated on successful smoking cessation and abstinence from illicit drugs # HTN with macroalbuminuria: - Restart lisinopril to get goal blood pressure less than 130/80. # Diabetes that is poorly controlled: We will defer management to primary team on further optimization of diabetes. Primary team has started the patient on Lantus and short-acting sliding-scale today. # Hyperlipidemia: Statin as above Problems: Pain Evaluation: Adequate Pain Control VTE Prophylaxis: Sub-Q Enoxaparin VTE Mechanical Devices: Venous Foot Pump Resuscitation Status: CPR: Attempt Resuscitation Kinza Cole MD Mar 17, 2017 12:13
--- NOTE | 2017-03-17 12:46 | PCM.DIMED ---
Discharge Instructions Date of Service Mar 17, 2017 Dates of Hospitalization Mar 15, 2017 at 23:14 Discharge Diagnosis Discharge Diagnosis # Unstable angina: Coronary angiography 03/16 showed obstructive disease in the LAD, diagonal artery, RCA and the posterolateral branch of the RCA. # HTN with macroalbuminuria: # Diabetes , poorly controlled: A1c 9.1 # Hyperlipidemia Test Results Test Results Cardiac cath 03/16 1) Coronary angiography: Right dominance a. Left main is short and normal caliber vessel with no significant angiographic disease. b. LAD is normal caliber calcific vessel with 80-85% stenosis in the mid vessel. The first diagonal artery is a medium caliber vessel with 70-80% stenosis proximally. c. LCx is normal caliber calcific vessel with mild luminal regularities. The first obtuse marginal artery has 40-50% stenosis at the ostium. d. RCA is normal caliber with 60% stenosis proximally and 80-85% tubular stenosis in the distal RCA. The proximal posterolateral branch has 70-75% tubular stenosis. 2) Left Heart catheterization: a. LVEDP is normal at 9 mmHg. b. No significant transaortic gradient on catheter pull-back. Diet Discharge Diet: Low fat, Low Sodium, Heart Healthy, Diabetic Activity Discharge Activity: Limited until seen by PCP Call your provider Call your provider for: Fever or Chills, Shortness of breath, Bleeding, Chest pain, Vomitting, Excessive diarrhea, Weakness (unilateral) Patient Instructions Patient Instructions You were hospitalized with unstable angina. Coronary angiography 03/16 showed obstructive disease in the LAD, diagonal artery, RCA and the posterolateral branch of the RCA. You are being transferred to [facility] for cardiac bypass surgery. Your diabetes seems to be uncontrolled. A1c level 9.4. We half held your Januvia and metformin and started on Lantus 10 units daily. You are also started on aspirin , atorvastatin and metoprolol. Follow-up Provider: Sandra Farias PA-C Follow-up with PCP in: 1 week (1 week after discharge from hospital) Shaun Rosenthal MD Mar 17, 2017 12:45
[2017-03-17] MEDS ORDERED: INSU100V7 SUBQ (12:49)
[2017-03-17] MEDS ORDERED: ATOR40TA69 PO (12:49)
[2017-03-17] MEDS ORDERED: ASPI81TA3 PO (12:49)
[2017-03-17] MEDS ORDERED: METO25TA6 PO (12:49)
--- NOTE | 2017-03-17 12:57 | PCM.DC.MED ---
Discharge Summary Date of Service Mar 17, 2017 Dates of Hospitalization Date of Hospital Admission Mar 15, 2017 at 23:14 Date of Discharge: Mar 17, 2017 Providers: Admitting Physician: Karl Ash MD Primary Care Physician: Sandra Farias PA-C Attending Physician: Shaun Helm MD Diagnosis at Time of Discharge Diagnosis at Time of Discharge # Unstable angina: Coronary angiography 03/16 showed obstructive disease in the LAD, diagonal artery, RCA and the posterolateral branch of the RCA. # HTN with macroalbuminuria: # Diabetes , poorly controlled: A1c 9.1 # Hyperlipidemia Consultations cardiology Dr Cole Procedures XRay, CTs & MRIs ECG Interpretation: SR - 98 Probable left atrial enlargement Time: 19:23 Interpreted by: ED physician X-Ray Chest Interpretation Chest Xray Interpretation: IMPRESSION: No acute pulmonary process. Dictated by: Becky Hooks M.D. on 03/15/2017 at 19:09 Interpretation / Wet Read by: Interpret - Radiologist Cardiac Echo Impression Interpretation Summary 1) Normal left ventricular thickness, size, wall motion, and systolic function (EF 65-70%). 2) Proximal septal thickening noted with mild LVOT gradient with valsalva (peak gradient 36mmHg). This LVOT gradient could be due to hyperdynamic state. 3) Normal right ventricular size and function. 4) No significant valvular abnormalities. 5) No prior Echo available for comparison. Invasive Procedures cardiac cath 1) Coronary angiography: Right dominance a. Left main is short and normal caliber vessel with no significant angiographic disease. b. LAD is normal caliber calcific vessel with 80-85% stenosis in the mid vessel. The first diagonal artery is a medium caliber vessel with 70-80% stenosis proximally. c. LCx is normal caliber calcific vessel with mild luminal regularities. The first obtuse marginal artery has 40-50% stenosis at the ostium. d. RCA is normal caliber with 60% stenosis proximally and 80-85% tubular stenosis in the distal RCA. The proximal posterolateral branch has 70-75% tubular stenosis. 2) Left Heart catheterization: a. LVEDP is normal at 9 mmHg. b. No significant transaortic gradient on catheter pull-back. Brief History per HPI Mariel is a 56 yo F with history of uncontrolled T2DM not insulin dependent who presented to the ED for concerns of intermittent chest pain over the last 2 weeks. She reports that she was on the exercise bike today at PT when she noted some chest tightness about 5 minutes into her exercise. She states the chest pressure was substernal, radiated laterally on her chest, and also into her left jaw and left arm. She reports her arms felt "rubbery" when it happened. She also had some associated lightheadedness, palpitations, and diaphoresis. She states this lasted about 5 minutes and resolved after rest. She has had about 5 episodes in the past 2 weeks with similar presentation but less severe. The episodes tend to be associated with exertion, such as mowing the lawn, except for one episode that occurred at night and woke her up from sleep. She does have an extensive history of heart disease in her family, with her father having an DC in his later 40s. At baseline, she has not noticed any JOYNER, LE edema, or orthopnea. 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 She denies any recent illnesses, but did have Januvia added to her diabetic regimen. Despite this, she reports her fasting sugars are still in the low 200s. She reports her last A1c was about 9.0. In the ED, she was asymptomatic with normal, stable vital signs EKG showed sinus rhythm with no acute ST changes CBC was unremarkable, CMP showed mild hyponatremia, negative troponin. Chest x- ray was benign Due to patient's multiple comorbidities, she is admitted for further evaluation of her chest pain Hospital Course 56-year-old woman history of diabetes and hyperlipidemia admitted with exertional chest pain: # Unstable angina: Coronary angiography yesterday showed obstructive disease in the LAD, diagonal artery, RCA and the posterolateral branch of the RCA. This was not surprising due to her multiple risk factors for CAD, including family history, uncontrolled diabetes, hyperlipidemia, and former smoking/illicit drug use. I spent significant time educating the patient and her about patient's condition and recommended cardiac bypass surgery. Patient and thought about it overnight and have arranged their finances and work responsibilities to undergo cardiac bypass surgery. Thankfully, her LV function is normal with no wall motion abnormalities and no valvular disease. She does have mild LVOT gradient with Valsalva but I think this is related to dehydration and hyperdynamic state. Recommendations as below: - Continue aspirin 81 mg daily - Continue atorvastatin 40 mg daily at bedtime - transfer to [place] for cardiac surgery,accepting physician Dr Shayne Escobar - Patient congratulated on successful smoking cessation and abstinence from illicit drugs # HTN with macroalbuminuria: - Resume lisinopril # Diabetes that is poorly controlled: started the patient on Lantus 10 U ,held home po meds # Hyperlipidemia: Statin as above Exam Vital Signs (Last) Date Time Temp Pulse Resp B/P Pulse Ox O2 Delivery O2 Flow Rate FiO2 03/17/17 10:42 37.4 110 16 117/77 97 Room Air 03/16/17 17:54 2.00 Exam General: Alert, Cooperative, No Acute Distress Head: Normal Eyes: Scleral Anicteric Nose: Mucous Membr Moist/[place] Mouth: Mucous Membr Moist/[place] Neck: Supple Chest & Lungs: Chest Wall Normal, Clear to auscultation & percussion Cardiovascular: Regular Rate/Rhythm Pulses: NL carotid, radial, femoral, DP, PT Abdomen: Non-tender, Non-distended, Normoactive bowel tones, Soft Extremities: No cyanosis/clubbing/edma bilat Neurological: Grossly Neurologically Intact, Normal Speech Additional Information: Psych: Calm, appropriate Test 03/15/17 19:54 03/16/17 06:10 03/17/17 07:40 Prothrombin Time 10.4sec (8.1-12.5) Prothromb Time International Ratio 0.97ratio White Blood Count 9.3th/mm3 (3.8-10.1) Red Blood Count 4.00mil/mm3 (3.90-5.20) Hemoglobin 12.3g/dL (12.0-15.6) Hematocrit 35.0% (35.0-46.0) Mean Corpuscular Volume 87.5fL (81-100) Mean Corpuscular Hemoglobin 30.8pg (27.0-35.0) Mean Corpuscular Hemoglobin Concent 35.1% (32.0-37.0) Red Cell Distribution Width 12.0% (12.3-15.4) Platelet Count 329bil/L (150-400) Neutrophils (%) (Auto) 47.6% (40-74) Lymphocytes (%) (Auto) 43.8% (14-46) Monocytes (%) (Auto) 5.7% (4-12) Eosinophils (%) (Auto) 2.3% (0-5) Basophils (%) (Auto) 0.4% (0-3) Sodium Level 137mEq/L (134-144) Potassium Level 4.4mEq/L (3.5-5.2) Chloride Level 99mEq/L (97-108) Carbon Dioxide Level 22mmol/L (18-29) Blood Urea Nitrogen 6mg/dL (6-24) Creatinine 0.45mg/dL (0.57-1.00) Estimat Glomerular Filtration Rate 208mL/min (>59) Glucose Level 267mg/dL (60-99) Hemoglobin A1c 9.4% (4.8-5.6) Calcium Level 9.6mg/dL (8.5-10.1) Total Bilirubin 0.2mg/dL (0.0-1.2) Aspartate Amino Transf (AST/SGOT) 28U/L (0-50) Alanine Aminotransferase (ALT/SGPT) 34U/L (0-32) Alkaline Phosphatase 145U/L (25-150) Troponin T 0.010ug/L (0.0-0.011) Total Protein 7.3g/dL (6.4-8.4) Albumin 4.1g/dL (3.4-5.0) Magnesium Level 1.9mg/dL (1.6-2.6) Triglycerides Level 186mg/dL (0-149) Cholesterol Level 161mg/dL (100-199) LDL Cholesterol, Calculated 84.800mg/dL (0-99) VLDL Cholesterol 37.200mg/dL HDL Cholesterol 39mg/dL (>39) Cholesterol/HDL Ratio 4.13 (0.0-4.4) Discharge Medications Discharge Medications Aspirin Chew (Aspirin Chew) 81 Mg Chew 81 MG PO DAILY Prescribed by: SHAUN HELM MD Atorvastatin Calcium (Atorvastatin Calcium) 40 Mg Tablet 40 MG PO HS Prescribed by: SHAUN HELM MD Cholecalciferol (Vitamin D3) (Vitamin D3) 5,000 Unit Tablet 5,000 UNIT PO DAILY (Reported) Cyanocobalamin (Vitamin B-12) (Vitamin B-12) 1,000 Mcg/1 Ml Drops 1,000 MCG PO DAILY (Reported) Estradiol (Estradiol) 0.5 Mg Tablet DAILY (Reported) Insulin Glargine (Lantus U100 Insulin Vial) 100 Unit/Ml Vial 10 UNIT SUBQ DAILY Prescribed by: SHAUN HELM MD Lactobacillus Combination No.4 (Probiotic) 1 Each Capsule 1 EACH PO DAILY ( Reported) Lisinopril (Lisinopril) 5 Mg Tablet 5 MG PO DAILY (Reported) Metoprolol Tartrate (Metoprolol Tartrate) 25 Mg Tablet 25 MG PO BID Prescribed by: SHAUN HELM MD Multivitamin (Once Daily) 1 Each Tablet 1 EACH PO DAILY (Reported) Nortriptyline (Nortriptyline) 10 Mg Capsule 10 MG PO HS (Reported) [place]-3 Fatty Acids/Fish Oil ([place] 3 Fish Oil Softgel) 1 Each Capsule.dr 1 EACH PO DAILY (Reported) Miscellaneous Medications Nystatin (Nystatin) 1 Each Powder.ea. 1 EACH PO (Reported) Followup Plan Disposition: transfer to [facility] Discharge Diet: Low fat, Low Sodium, Heart Healthy, Diabetic Discharge Activity: Limited until seen by PCP Patient Instructions You were hospitalized with unstable angina. Coronary angiography 03/16 showed obstructive disease in the LAD, diagonal artery, RCA and the posterolateral branch of the RCA. You are being transferred to [facility] for cardiac bypass surgery. Your diabetes seems to be uncontrolled. A1c level 9.4. We half held your Januvia and metformin and started on Lantus 10 units daily. You are also started on aspirin , atorvastatin and metoprolol. Follow-up Provider: Sandra Farias PA-C Follow-up with PCP in: 1 week (1 week after discharge from hospital) Time spent 35 minutes copies to: Sandra Farias PA-C, [place] MD Mar 17, 2017 12:57
[2017-03-17 13:52] VITALS: BP 131/79; PULSE 90; RESP 16; O2SAT 99
== END 2017-03-17 14:55 | disposition short-term general hospital (02) | DRG 287 ==
LOC: SED 18:23 → OBSVTOIN 23:14 → MPC 23:14
PROVIDERS: ADMIT Hospitalist; ATTEND Internal Medicine
PROC: 4A023N7 Measurement of Cardiac Sampling and Pressure, Left Heart, Percutaneous Approach (ICD-10-PCS; principal; 2017-03-16)
PROC: B2101ZZ Fluoroscopy of Single Coronary Artery using Low Osmolar Contrast (ICD-10-PCS; 2017-03-16)
DX: I25.110 Atherosclerotic heart disease of native coronary artery with unstable angina pectoris (principal); E11.65 Type 2 diabetes mellitus with hyperglycemia; E86.0 Dehydration; E78.5 Hyperlipidemia, unspecified; Z87.891 Personal history of nicotine dependence; Z79.4 Long term (current) use of insulin; Z82.49 Family history of ischemic heart disease and other diseases of the circulatory system